=== PATIENT | male | born 1995 | race Caucasian/White ===

== ENCOUNTER 2017-10-14 08:30 | Emergency (ER) | payer MEDICAID ==
[~2017-10-14] VITALS: Ht 182.9 cm; Wt 91.0 kg
[2017-10-14 08:56] VITALS: BP 118/77
== END 2017-10-14 12:12 | disposition home or self-care (01) ==
LOC: ER 09:18
DX: S93.402A Sprain of unspecified ligament of left ankle, initial encounter (principal); W20.8XXA Other cause of strike by thrown, projected or falling object, initial encounter; Y93.9 Activity, unspecified; Y92.9 Unspecified place or not applicable
CPT/HCPCS: 73610; 73630; 99284; Z7610

== ENCOUNTER 2019-02-13 16:57 | Emergency (ER) | payer MEDICAID ==
[~2019-02-13] VITALS: Ht 182.9 cm; Wt 91.0 kg
[2019-02-13] MEDS ORDERED: KETOROLAC 60MG/2ML VIAL IM ONE (18:00)
[2019-02-13 19:16] VITALS: BP 117/81
== END 2019-02-13 19:18 | disposition home or self-care (01) ==
LOC: ER 16:57
DX: S97.122A Crushing injury of left lesser toe(s), initial encounter (principal); V91.39XA Hit or struck by falling object due to accident to unspecified watercraft, initial encounter; Y93.89 Activity, other specified; Y92.89 Other specified places as the place of occurrence of the external cause; Y99.8 Other external cause status
CPT/HCPCS: 73630; 96372; 99283; J1885; Z7610

== ENCOUNTER 2019-03-01 13:33 | Emergency (ER) | payer MEDICAID ==
[~2019-03-01] VITALS: Ht 182.9 cm; Wt 91.0 kg
[2019-03-01] MEDS ORDERED: PENICILLIN V POTASSIUM 250MG TABLET PO STA (14:09)
[2019-03-01] MEDS ORDERED: IBUPROFEN 800MG TABLET PO ONE (14:15)
[2019-03-01 14:36] VITALS: BP 136/74
== END 2019-03-01 14:41 | disposition home or self-care (01) ==
LOC: ER 13:33
DX: J02.0 Streptococcal pharyngitis (principal); B95.5 Unspecified streptococcus as the cause of diseases classified elsewhere
CPT/HCPCS: 99283

== ENCOUNTER 2020-02-04 10:42 | Emergency (ER) | payer MEDICAID | END 2020-02-05 10:49 | disposition left against medical advice (07) | LOC: ER 11:16 | DX: Z53.21 Procedure and treatment not carried out due to patient leaving prior to being seen by health care provider (principal) ==